=== PATIENT | female | born 1965 | race Caucasian/White ===

== ENCOUNTER 2016-09-12 21:00 | Inpatient (IN) | payer OTHER ==
[~2016-09-12] VITALS: Ht 165.1 cm; Wt 101.0 kg
[~2016-09-12 21:00] MED LIST: ARTHROTEC PO; BENZTROPINE ME0.5 MG PO; COGENTIN0.5 MG PO; CRESTOR10 MG PO; EFFEXOR75 MG PO; FISH OIL PO; GEODON PO; GEODON40 MG PO; GEODON80 MG PO; LAMICTAL150 MG PO; LAMICTAL25 MG PO; LAMOTRIGINE100 MG PO; LEVOTHYROXINE25 MCG PO; LISINOPRIL10 MG PO; NEXIUM40 MG PO; PROTONIX40 MG PO; PROZAC40 MG PO; ULTRAM50 MG PO
[2016-09-12 21:50] LABS: HEMATOCRIT 44.4 % (36.0-46.0); MCH 29.8 PG (29.0-34.0); MCHC 33.8 G/DL (30.0-36.0); MCV 88.3 FL (83-99); MEAN PLAT.VOLUME 9.8 uM^3 (9.5-12.4); PLATELET COUNT 229 K/uL (156-360); RBC DIS.WIDTH-CV 13.1 % (11.8-14.6); RBC DIS.WIDTH-SD 42.3 % (39-53); RED BLOOD COUNT 5.03 M/uL (3.80-5.20); WHITE BLOOD COUNT 10.1 K/uL (4.1-10.2)
[2016-09-12 21:54] LABS: ADD MEDTOX COMMENT Y; AMPHETAMINE NEGATIVE (500 ng/mL); BARBITURATES NEGATIVE (200 ng/mL); BENZODIAZEPINES PRESUMPTIVE POSITIVE (150 ng/mL); COCAINE NEGATIVE (150 ng/mL); INTERNAL CONTROLS VALID? YES; METHADONE NEGATIVE (200 ng/mL); METHAMPHETAMINE NEGATIVE (500 ng/mL); OPIATES (MORPHINE) NEGATIVE (100 ng/mL); OXYCODONE NEGATIVE (100 ng/mL); PHENCYCLIDINE NEGATIVE (25 ng/mL); PROPOXYPHENE NEGATIVE (300 ng/mL); THC CANNABINOIDS NEGATIVE (50 ng/mL); TRICYCLIC ANTIDEPRESSANTS NEGATIVE (300 ng/mL)
[2016-09-12 21:59] LABS: CHLORIDE 107 mEq/L (99-109); SODIUM 137 mEq/L (136-147)
[2016-09-12 22:01] LABS: GLUCOSE 107 mg/dL (70-99)
[2016-09-12 22:02] LABS: ANION GAP 8 MEQ/L (2-14)
[2016-09-12 22:04] LABS: SERUM ETHYL ALCOHOL < 10 mg/dL
[2016-09-12 22:05] LABS: GFR ESTIMATE (CALCULATED) > 59 mL/min/; UREA NITROGEN (BUN) 8 mg/dL (9-23)
[2016-09-12 23:01] LABS: BENZODIAZEPINES QUANT VALUE 0 NG/ML; BENZODIAZEPINES, URINE SCREEN Negative (200 ng/mL)
[2016-09-13] MEDS ORDERED: LISINOPRIL10 MG PO ×2 (00:24→01:13)
[2016-09-13] MEDS ORDERED: EXTRA STRENGTH500 M1 PO (00:24)
[2016-09-13] MEDS ORDERED: ATIVAN1 MG PO (01:07)
[2016-09-13 01:08] VITALS: BP 120/72
[2016-09-13] MEDS ORDERED: EFFEXOR XR150 MG PO (01:08)
[2016-09-13] MEDS ORDERED: COGENTIN0.5 MG PO (01:09)
[2016-09-13] MEDS ORDERED: GEODON80 MG PO (01:10)
[2016-09-13] MEDS ORDERED: ATORVASTATIN CA20 MG PO (01:11)
[2016-09-13] MEDS ORDERED: LEVO-T25 MCG PO (01:12)
[2016-09-13] MEDS ORDERED: LAMICTAL100 MG PO (01:13)
[2016-09-13] MEDS ORDERED: PROTONIX40 MG PO (01:14)
[2016-09-13] MEDS ORDERED: MOTRIN600 MG PO (01:18)
[2016-09-13 01:36] VITALS: BP 120/72
[2016-09-13 07:51] VITALS: BP 136/83
[2016-09-13 15:04] VITALS: BP 125/69
[2016-09-14 07:50] VITALS: BP 132/61
[2016-09-14 15:10] VITALS: BP 121/59
[2016-09-15 07:45] VITALS: BP 116/66
[2016-09-15] MEDS ORDERED: HYDROXYZINE PAM25 MG PO (09:13)
== END 2016-09-15 09:59 | disposition home or self-care (01) | DRG 885 ==
LOC: EME 21:00 → EDOF 23:18 → 1WEST 23:18
DX: F33.3 Major depressive disorder, recurrent, severe with psychotic symptoms (principal); R45.851 Suicidal ideations; I10 Essential (primary) hypertension; K21.9 Gastro-esophageal reflux disease without esophagitis; L71.9 Rosacea, unspecified; G47.00 Insomnia, unspecified; E78.5 Hyperlipidemia, unspecified; F17.210 Nicotine dependence, cigarettes, uncomplicated; Z81.8 Family history of other mental and behavioral disorders; Z88.5 Allergy status to narcotic agent
CPT/HCPCS: 80048; 84999; 85027; 90839; 99281; 99285; G0480; Q0177